=== PATIENT | female | born 1980 | race American Indian/Alaskan Native ===

== ENCOUNTER 2016-07-09 12:28 | Emergency (ER) | payer OTHER ==
--- NOTE | 2016-07-09 20:18 | Emergency Department Report ---
HPI - General Chief Complaint: Urogenital-Female Time Seen by Provider: 07/09/16 19:42 - HPI HPI: 36-year-old female presents today complaining of continued burning on urination and increased urinary frequency/urgency. Patient states that she was seen in an ER in [place] on June 27 and was diagnosed with a UTI. She was prescribed Macrobid and Pyridium, she finished the course but states the symptoms have not resolved completely. Patient also states that she is sexually active with her who was diagnosed with chlamydia today. Denies any vaginal discharge. Patient states that she is currently on her menstrual period started on July 02. Denies history of STDs. Denies fever, chills, chest pain, shortness of breath, abdominal pain, nausea, vomiting. ED Review of Systems ROS: Stated complaint: VAG DISCHARGE Other details as noted in HPI Constitutional: denies: chills, fever, malaise Eyes: denies: eye pain ENT: denies: ear pain, throat pain, congestion Respiratory: denies: cough, shortness of breath, wheezing Cardiovascular: denies: chest pain, palpitations Endocrine: no symptoms reported Gastrointestinal: denies: abdominal pain, nausea, vomiting Genitourinary: urgency, dysuria, frequency. denies: hematuria, discharge Neurological: denies: headache, weakness Physical Exam - Physical Exam Vital Signs: Vital Signs 07/09/16 14:27 Temperature 99.4 F Pulse Rate 88 Respiratory 18 Rate Blood Pressure 132/69 O2 Sat by Pulse 100 Oximetry Physical Exam: GENERAL: The patient is well-developed and well-nourished. Patient is in NAD. HEAD: Normocephalic. Atraumatic. CHEST/LUNGS: Clear to auscultation throughout. HEART/CARDIOVASCULAR: Regular rate and rhythm. ABDOMEN: Abdomen is soft, nontender. Bowel sounds normoactive. No guarding or rebound tenderness. Negative for CVA tenderness bilaterally. EXTREMITIES: Peripheral pulses intact. Capillary refill less than 2 seconds. NEURO: Alert and oriented x 3. Normal gait. ED Course Vital Signs 07/09/16 14:27 Temperature 99.4 F Pulse Rate 88 Respiratory 18 Rate Blood Pressure 132/69 O2 Sat by Pulse 100 Oximetry ED Medical Decision Making - Lab Data Vital Signs 07/09/16 07/09/16 14:27 20:44 Temperature 99.4 F 97.9 F Pulse Rate 88 70 Respiratory 18 16 Rate Blood Pressure 132/69 Blood Pressure 118/75 [Right] O2 Sat by Pulse 100 98 Oximetry Lab Results 07/09/16 Range/Units 20:15 Urine Color Yellow (Yellow) Urine Turbidity Clear (Clear) Urine pH 6.0 (5.0-7.0) Ur Specific [place] 1.014 (1.003-1.030) Urine Protein <15 mg/dl (Negative) mg/dL Urine Glucose (UA) Neg (Negative) mg/dL Urine Ketones Neg (Negative) mg/dL Urine Blood Sm (Negative) Urine Nitrite Neg (Negative) Ur Reducing Substances Not Reportable Urine Bilirubin Neg (Negative) Urine Ictotest Not Reportable Urine Urobilinogen < 2.0 (<2.0) mg/dL Ur Leukocyte Esterase Neg (Negative) Urine WBC (Auto) < 1.0 (0.0-6.0) /HPF Urine RBC (Auto) 2.0 (0.0-6.0) /HPF U Epithel Cells (Auto) 2.0 (0-13.0) /HPF Urine HCG, Qual Negative (Negative) - Medical Decision Making 36-year-old female presents today complaining of dysuria post exposure to chlamydia. Patient would like to be treated today. Her urinalysis is within normal limits and her urine hCG is negative. Patient was given azithromycin and ceftriaxone today. Patient is in no acute distress at this time. She will be discharged home and is encouraged to follow up with a primary care provider. She is encouraged to return to the emergency room for any worsening symptoms. Critical care attestation.: If time is entered above; I have spent that time in minutes in the direct care of this critically ill patient, excluding procedure time. ED Disposition Clinical Impression: Chlamydia contact, Dysuria Disposition: DISCHARGED TO HOME OR SELFCARE Is pt being admited?: No Does the pt Need Aspirin: No Condition: Stable Instructions: Chlamydia Infection (ED), Gonococcal Urethritis (ED), Dysuria (ED ) Additional Instructions: Follow-up with primary care provider. Return to the emergency department if symptoms worsen. Referrals: PRIMARY CAREMD [Primary Care Provider] - 3-5 Days [facility] [Outside] - 3-5 Days GONZALEZ SIMONS MD [Staff Physician] - 3-5 Days Forms: Work/School Release Form(ED), STI Treatment and Prevention Time of Disposition: 21:13
[2016-07-09 20:37] LABS: Bilirubin,Urine NEG (Negative); Blood,Urine SM (Negative); Ketones,Urine NEG (Negative); Leukocyte Esterase,Urine NEG (Negative); Nitrite,Urine NEG (Negative); Protein,Urine <15 mg/dL mg/dL (Negative); Urobilinogen,Urine < 2.0 mg/dL (<2.0); WBC,Urine < 1.0 /HPF (0.0-6.0)
[2016-07-09 20:45] VITALS: BP 118/75
[2016-07-09] MEDS ORDERED: ROCEPHIN IM ONE (21:06)
[2016-07-09] MEDS ORDERED: XYLOCAINE 1% MPF 5 mL INFILTRATI ONE (21:06)
[2016-07-09] MEDS ORDERED: ZITHROMAX PO ONE (21:06)
== END 2016-07-09 21:15 | disposition home or self-care (01) ==
LOC: ED 12:28
DX: A74.89 Other chlamydial diseases (principal); R30.0 Dysuria
CPT/HCPCS: 81001; 81025; 96372; 99282; J0696